=== PATIENT | female | born 1940 | race Caucasian/White ===

== ENCOUNTER 2020-02-12 16:27 | Inpatient (IN) | payer MEDICARE, OTHER ==
[2020-02-12 17:09] LABS: HEMATOCRIT 29.1 % (36.0-47.0); HEMOGLOBIN 9.1 g/dL (12.0-15.5); MEAN CORPUSCULAR HEMOGLOBIN 22.8 pg (27.0-33.4); MEAN CORPUSCULAR HGB CONC 31.2 g/dL (32.0-36.0); MEAN CORPUSCULAR VOLUME 73 fl (80-97); PLATELET COUNT 555 10^3/uL (150-450); RED BLOOD COUNT 3.98 10^6/uL (3.72-5.28); RED CELL DISTRIBUTION WIDTH 15.9 % (11.5-14.0); WHITE BLOOD COUNT 20.1 10^3/uL (4.0-10.5)
[2020-02-12 17:13] LABS: INTERNATIONAL RATION (INR) 2.41; PROTHROMBIN TIME 26.7 SEC (11.4-15.4)
[2020-02-12 17:24] LABS: A TYPE INFLUENZA AG NEGATIVE (NEGATIVE); B INFLUENZA AG NEGATIVE (NEGATIVE)
[2020-02-12 17:26] LABS: ALBUMIN 3.4 g/dL (3.5-5.0); ALKALINE PHOSPHATASE 117 U/L (38-126); ANION GAP 11 (5-19); ASPARTATE AMINO TRANSFERASE 304 U/L (14-36); BILIRUBIN,DIRECT 0.6 mg/dL (0.0-0.4); BILIRUBIN,TOTAL 0.8 mg/dL (0.2-1.3); BLOOD UREA NITROGEN 36 mg/dL (7-20); CALCIUM 9.7 mg/dL (8.4-10.2); CARBON DIOXIDE 25 mmol/L (22-30); CHLORIDE 100 mmol/L (98-107); GLUCOSE 120 mg/dL (75-110); POTASSIUM 4.7 mmol/L (3.6-5.0)
--- NOTE | 2020-02-12 17:36 | ER Document Report ---
ED General - General Chief Complaint: Shortness Of Breath Stated Complaint: WEAKNESS/SHORTNESS OF BREATH Time Seen by Provider: 02/12/20 17:32 Primary Care Provider: DEACON HARLEY PA [Primary Care Provider] - Follow up as needed Mode of Arrival: Medic Information source: Patient TRAVEL OUTSIDE OF THE [place] IN LAST 30 DAYS: No - HPI Onset: Other - over the last 3 weeks Onset/Duration: Gradual Quality of pain: Achy Severity: Severe Pain Level: 2 Associated symptoms: Nonproductive cough, Shortness of breath Exacerbated by: Other - exertion Relieved by: Denies Similar symptoms previously: No Recently seen / treated by doctor: Yes - patient has been seen as an outpatient and treated with 2 antibiotics Notes: 80 year old female with a history of AFib on Eliquis and s/p pacemaker, HTN and COPD here in the ER for 3 weeks of cough, congestion, weakness. The patient says the cough she had been having has improved but she still feels very short of breath. The patient says she feels very weak and run down. The patient has been seen at [facility] and has been told she has pneumonia. The patient is finishing a course of Doxycycline and she apparently has finished a course of C efuroxime. The patient denies known sick contacts or recent travel. - Related Data Allergies/Adverse Reactions: No Known Allergies Allergy (Unverified 02/12/20 16:54) Home Medications: dioxycycline Past Medical History - General Information source: Patient - Social History Smoking Status: Former Smoker Frequency of alcohol use: Rare Drug Abuse: None Family History: Hypertension Patient has suicidal ideation: No Patient has homicidal ideation: No Pulmonary Medical History: Reports: Hx COPD - not on home O2 or Medications Review of Systems - Review of Systems Constitutional: Weakness EENT: No symptoms reported Cardiovascular: No symptoms reported Respiratory: Cough, Short of breath Gastrointestinal: No symptoms reported Genitourinary: No symptoms reported Female Genitourinary: No symptoms reported Musculoskeletal: No symptoms reported Skin: No symptoms reported Hematologic/Lymphatic: No symptoms reported Neurological/Psychological: No symptoms reported -: Yes All other systems reviewed and negative Physical Exam - Vital signs Vitals: Resp Pulse Ox 30 H 92 02/12/20 16:27 02/12/20 16:27 - Notes Notes: GENERAL: Somewhat ill appearing, mild distress HEAD: Atraumatic, normocephalic. EYES: Pupils equal round and reactive to light, extraocular movements intact, sclera anicteric, conjunctiva are normal. ENT: Nares patent, oropharynx clear without exudates. Moist mucous membranes. NECK: Normal range of motion, supple without lymphadenopathy. LUNGS: Breath equal with mild wheezing and rhales but no ronchi. HEART: Regular rate, irregularly irregular rhythm without murmurs, rubs or gallops. ABDOMEN: Soft, nontender, normoactive bowel sounds. No guarding, no rebound. No masses appreciated. EXTREMITIES: Normal range of motion, no pitting or edema. No clubbing or cyanosis. NEUROLOGICAL: Cranial nerves II through XII grossly intact. Normal speech, normal gait. PSYCH: Normal mood, normal affect. SKIN: Warm, Dry, normal turgor, no rashes or lesions noted. Course - Re-evaluation Re-evalutation: 02/12/20 19:12 The patient is here in the ER because she has felt short of breath for about 3 weeks now. She initially had a bad cough and she has been treated with antibiotics without improvement. The patient has an elevated BNP here in the ER and she has diffuse lung opacities which could be consistent with CHF. That said , COVID is also possible and the patient will need to be ruled out. Patient has a high WBC count but is AFebrile here in the ER. Patient found to have a low Mg which was supped. Patient given Lasix for her likely new onset CHF. 02/12/20 20:17 Patient admitted to Tele Floor with COVID rule out precautions. Dr. Humphries requested a repeat Troponin prior to admission to the floor. - Vital Signs Vital signs: Temp Pulse Resp BP Pulse Ox 97.9 F 101 H 31 H 151/98 H 94 02/12/20 16:49 02/12/20 16:49 02/12/20 19:30 02/12/20 19:30 02/12/20 19:30 - Laboratory Result Diagrams: 02/12/20 16:38 02/12/20 16:38 Laboratory results interpreted by me: 02/12/20 02/12/20 02/12/20 16:38 16:38 16:38 WBC 20.1 H Hgb 9.1 L Hct 29.1 L MCV 73 L MCH 22.8 L MCHC 31.2 L RDW 15.9 H Plt Count 555 H Seg Neuts % (Manual) 86 H Lymphocytes % (Manual) 9 L Abs Neuts (Manual) 17.3 H PT 26.7 H Sodium 136.1 L BUN 36 H Est GFR ( Amer) 53 L Est GFR (MDRD) Non-Af 43 L Glucose 120 H Lactic Acid Magnesium Direct Bilirubin 0.6 H AST 304 H ALT 50 H NT-Pro-B Natriuret Pep Albumin 3.4 L 02/12/20 02/12/20 02/12/20 16:38 16:38 16:38 WBC Hgb Hct MCV MCH MCHC RDW Plt Count Seg Neuts % (Manual) Lymphocytes % (Manual) Abs Neuts (Manual) PT Sodium BUN Est GFR ( Amer) Est GFR (MDRD) Non-Af Glucose Lactic Acid 3.3 H Magnesium 1.3 L Direct Bilirubin AST ALT NT-Pro-B Natriuret Pep 67501 H Albumin - Diagnostic Test Radiology reviewed: Image reviewed, Reports reviewed - EKG Interpretation by Me Rate: Normal [place]/QRS: Left axis deviation Additional EKG results interpreted by me: 02/12/20 19:05 AV Dual Paced Discharge - Discharge Clinical Impression: Hypomagnesemia, Shortness of breath Heart failure Qualifiers: Heart failure type: unspecified Heart failure chronicity: unspecified Qualified Code(s): I50.9 - Heart failure, unspecified Condition: Fair Disposition: ADMITTED INPATIENT Admitting Provider: Yandel (Hospitalist) Unit Admitted: Telemetry Referrals: DEACON HARLEY PA [Primary Care Provider] - Follow up as needed
[2020-02-12 17:52] LABS: ABSOLUTE LYMPHOCYTES# (MANUAL) 1.8 10^3/uL (0.5-4.7); BASOPHILS % (MANUAL) 0 % (0-2); EOSINOPHILS % (MANUAL) 0 % (0-6); LYMPHOCYTES % (MANUAL) 9 % (13-45); MONOCYTES % (MANUAL) 5 % (3-13); PLATELET COMMENT INCREASED; SEGMENTED NEUTROPHILS % (MAN) 86 % (42-78); TOTAL CELLS COUNTED 100
[2020-02-12 17:53] LABS: ANISOCYTOSIS 1+
[2020-02-12 17:54] LABS: HYPOCHROMASIA 1+
[2020-02-12 17:55] LABS: BURR CELLS SLIGHT; OVALOCYTES SLIGHT; POLYCHROMASIA 1+; SCHISTOCYTES SLIGHT
--- NOTE | 2020-02-12 18:25 | RADIOLOGY REPORT (SQ) ---
EXAM DESCRIPTION: CHEST SINGLE VIEW IMAGES COMPLETED DATE/TIME: 02/12/2020 4:57 pm REASON FOR STUDY: SOB COMPARISON: None. EXAM PARAMETERS: NUMBER OF VIEWS: One view. TECHNIQUE: Single frontal radiographic view of the chest acquired. RADIATION DOSE: NA LIMITATIONS: None. FINDINGS: LUNGS AND PLEURA: There are patchy peripheral and basilar opacities in both lungs. Probab le small right pleural effusion. No pneumothorax. Lungs are hyperinflated. MEDIASTINUM AND HILAR STRUCTURES: No masses. Contour normal. HEART AND VASCULAR STRUCTURES: Heart normal in size. Normal vasculature. BONES: No acute findings. HARDWARE: Left infraclavicular pacemaker with intact lead wires. OTHER: No other significant finding. IMPRESSION: Patchy peripheral and basilar predominant opacities in both lungs may represent infectio us/inflammatory process. Superimposed pulmonary edema not excluded. TECHNICAL DOCUMENTATION: JOB ID: [id number] 2010 [employer]- All Rights Reserved Reading location - IP/workstation name: [email or web address]
--- NOTE | 2020-02-12 18:35 | EKG REPORT ---
SEVERITY:- ABNORMAL ECG - A-V DUAL-PACED COMPLEXES W/ SOME INHIBITION CONSIDER OLD ANTERIOR [place] : Confirmed by: Blade Mendez MD 12-Feb-2020 18:34:43
[2020-02-12] MEDS ORDERED: FUROSEMIDE INJ/PF 20 MG/2 ML SDV IV ONE (18:47)
[2020-02-12] MEDS ORDERED: ALBUTEROL SULFATE HFA (90 MCG/PUFF) 8 GM MDI (1 MDI/ER DISP) IH SCH (20:30)
[2020-02-12] MEDS ORDERED: MAG HYDROX/AL HYDROX/SIMETH SUSP 30 ML UDCUP PO PRN (20:49)
[2020-02-12] MEDS ORDERED: ONDANSETRON HCL INJ/PF 4 MG/2 ML SDV IV PRN (20:49)
[2020-02-12] MEDS ORDERED: MAGNESIUM HYDROXIDE SUSP 30 ML UDCUP PO PRN (20:49)
[2020-02-12] MEDS ORDERED: ACETAMINOPHEN 325 MG TABLET PO PRN (20:49)
[2020-02-12] MEDS ORDERED: LEVALBUTEROL HCL NEB 0.63 MG/3 ML AMPUL NEB PRN (20:59)
[2020-02-12] MEDS ORDERED: LORAZEPAM INJ 2 MG/1 ML VIAL IV PRN (20:59)
[2020-02-12] MEDS ORDERED: METOPROLOL TARTRATE PF/INJ 5 MG/5 ML SDV IV PRN (20:59)
[2020-02-12] MEDS ORDERED: HYDRALAZINE HCL INJ/PF 20 MG/1 ML SDV IV PRN (20:59)
[2020-02-12] MEDS ORDERED: GUAIFENESIN SYRP 200 MG/10 ML UDC PO PRN (20:59)
[2020-02-12] MEDS ORDERED: MELATONIN 5 MG TABLET PO PRN (20:59)
[2020-02-12] MEDS ORDERED: PROMETHAZINE HCL INJ 25 MG/1 ML VIAL IV PRN (21:05)
[2020-02-12] MEDS ORDERED: MEROPENEM 1 GM VIAL ONE (21:46)
[2020-02-12] MEDS ORDERED: AZITHROMYCIN INJ 500 MG VIAL IV ONE (21:46)
[2020-02-12] MEDS ORDERED: FUROSEMIDE INJ/PF 40 MG/4 ML SDV ONE (21:47)
[2020-02-12] MEDS ORDERED: AZITHROMYCIN INJ 500 MG VIAL IV SCH (22:00)
[2020-02-12] MEDS ORDERED: MEROPENEM 1 GM VIAL IV SCH (22:00)
[2020-02-12] MEDS: MAGNESIUM SULFATE/D5W 1 GM/100 ML RTUPB IV SCH (22:04)
[2020-02-12] MEDS: MEROPENEM 1 GM in NORMAL SALINE 50 ML IV SCH (22:07)
[2020-02-12] MEDS: AZITHROMYCIN 500 MG in DEXTROSE 5%-WATER 250 ML IV SCH (22:08)
[2020-02-12] MEDS: NITROGLYCERIN 2% OINTMENT 1 GM PACKET TP SCH (22:19)
[2020-02-12] MEDS ORDERED: APIXABAN 2.5 MG TABLET PO ONE (22:30)
[2020-02-12 22:35] LABS: CREATINE KINASE MB 3.03 ng/mL (<4.55)
[2020-02-12 22:48] LABS: TROPONIN I 0.088 ng/mL
--- NOTE | 2020-02-13 03:11 | PDOC H&P ---
History of Present Illness Admission Date/PCP: 02/12/2020 20:19 TREVA BLANCO Patient complains of: Dyspnea History of Present Illness: BEATRICE BALL is a 80 year old female who presents the emergency room with a 3-week history of dyspnea. She admits gradual onset and worsening of dyspnea over the last 3 weeks. Her dyspnea has become severe today and has been accompanied by generalized weakness, fatigue and malaise and associated with a nonproductive cough. Her dyspnea is worsened by any exertion. She denies other associated or accompanying signs and symptoms. She denies prior similar episodes. She was seen in by urgent care providers on 2 occasions over the last 3 weeks with similar complaints and was treated with cefuroxime for 10 days and then with doxycycline for 10 days which she has nearly completed without noticeable improvement. She denies identification of any additional aggravating or ameliorating factors for her dyspnea. In the emergency room she was found to be hypoxic requiring supplemental oxygen and hypertensive. She was noted to have an elevated lactic acid at 3.3, a BNP greater than 10,000, a white blood count of 20,000, a magnesium level of 1.3 and a serum troponin of 0.087. She was subsequently admitted to the hospital for further evaluation and treatment. Coronavirus testing was performed in the ER. Past Medical History Cardiac Medical History: Reports: Atrial Fibrillation - On chronic anticoagula tion with Eliquis, Hypertension, Other - Dual-chamber pacemaker Denies: Congestive Heart Failure, Coronary Artery Disease, DVT, Myocardial Infarction, Hyperlipidema, Pulmonary Embolism Pulmonary Medical History: Reports: Chronic Obstructive Pulmonary Disease (COPD) - not on home O2 or medical therapy Denies: Asthma EENT Medical History: Denies: Cataracts, Ears - Hearing aids Neurological Medical History: Denies: Hemorrhagic CVA, Ischemic CVA, Seizures Endocrine Medical History: Denies: Diabetes Mellitus Type 1, Diabetes Mellitus Type 2, Hyperthyroidism, Hypothyroidism Renal/ Medical History: Denies: Chronic Kidney Disease, Nephrolithiasis Malignancy Medical History: Reports: None GI Medical History: Denies: Cirrhosis, Crohn's Disease, Hepatitis, Ulcerative Colitis Musculoskeltal Medical History: Denies: Arthritis, Gout Skin Medical History: Denies: Eczema, Psoriasis Psychiatric Medical History: Denies: Alcohol Dependency, Substance Abuse, Tobacco Dependency Traumatic Medical History: Reports: None Hematology: Denies: Anemia, Bleeding Tendencies Infectious Medical History: Reports: None Past Surgical History Past Surgical History: Reports: Cholecystectomy, Hysterectomy, Knee Replacement, Pacemaker, Tonsillectomy Social History Information Source: Patient Lives with: Spouse/Significant other Smoking Status: Former Smoker - Remote past Electronic Cigarette use?: No Frequency of Alcohol Use: None Hx Recreational Drug Use: No Drugs: None Hx Prescription Drug Abuse: No - Advance Directive Resuscitation Status: Full Code Surrogate healthcare decision maker:: Eliz Gayle Family History Family History: Hypertension. denies: CAD, DM, Malignancy Parental Family History Reviewed: Yes Children Family History Reviewed: No Sibling(s) Family History Reviewed.: Yes Medication/Allergy Allergies/Adverse Reactions: No Known Allergies Allergy (Unverified 02/12/20 16:54) Review of Systems Constitutional: PRESENT: as per HPI, fatigue, weakness. ABSENT: chills, fever(s) Eyes: ABSENT: visual disturbances, other - Eye pain Ears: ABSENT: hearing changes, other - Ear pain Nose, Mouth, and Throat: ABSENT: headache(s), sore throat Cardiovascular: PRESENT: dyspnea on exertion. ABSENT: chest pain, edema, palpitations Respiratory: PRESENT: as per HPI, cough, dyspnea. ABSENT: hemoptysis, sputum Gastrointestinal: ABSENT: abdominal pain, constipation, diarrhea, nausea, vomiting Genitourinary: ABSENT: dysuria, hematuria Musculoskeletal: ABSENT: back pain, joint swelling Integumentary: ABSENT: pruritus, rash Neurological: ABSENT: confusion, convulsions, focal weakness, memory loss, syncope Psychiatric: ABSENT: anxiety, depression Endocrine: ABSENT: cold intolerance, heat intolerance Hematologic/Lymphatic: ABSENT: easy bleeding, easy bruising Allergic/Immunologic: ABSENT: seasonal rhinorrhea Physical Exam Vital Signs: Temp Pulse Resp BP Pulse Ox 97.9 F 101 H 31 H 151/98 H 94 02/12/20 16:49 02/12/20 16:49 02/12/20 19:30 02/12/20 19:30 02/12/20 19:30 General appearance: PRESENT: cooperative, mild distress - Secondary to dyspnea Head exam: PRESENT: atraumatic, normocephalic Eye exam: ABSENT: conjunctival injection, scleral icterus Ear exam: PRESENT: normal external ear exam. ABSENT: bleeding, drainage Mouth exam: PRESENT: dry mucosa, neck supple Neck exam: ABSENT: thyromegaly, tracheal deviation Respiratory exam: PRESENT: decreased breath sounds - Breath sounds decreased at the bilateral bases, rales - Fine bibasilar rales in the lower one fourth of both lung rutherford, symmetrical, tachypnea Cardiovascular exam: PRESENT: RRR. ABSENT: clicks, gallop, rubs Pulses: PRESENT: normal radial pulses, normal dorsalis pedis pul Vascular exam: PRESENT: normal capillary refill. ABSENT: pallor GI/Abdominal exam: PRESENT: normal bowel sounds, soft Rectal exam: PRESENT: deferred Extremities exam: ABSENT: pedal edema, tenderness Musculoskeletal exam: ABSENT: deformity, dislocation Neurological exam: PRESENT: alert, oriented to person, oriented to place, oriented to time, oriented to situation, CN II-XII grossly intact Psychiatric exam: PRESENT: appropriate affect, normal mood Skin exam: PRESENT: dry, intact, warm. ABSENT: jaundice, rash, urticaria Results Laboratory Results: 02/12/20 16:38 02/12/20 16:38 02/12/20 02/12/20 02/12/20 16:38 16:38 16:38 WBC 20.1 H RBC 3.98 Hgb 9.1 L Hct 29.1 L MCV 73 L MCH 22.8 L MCHC 31.2 L RDW 15.9 H Plt Count 555 H Seg Neutrophils % Not Reportable Sodium 136.1 L Potassium 4.7 Chloride 100 Carbon Dioxide 25 Anion Gap 11 BUN 36 H Creatinine 1.19 Est GFR ( Amer) 53 L Glucose 120 H Lactic Acid 3.3 H Calcium 9.7 Magnesium Total Bilirubin 0.8 AST 304 H Alkaline Phosphatase 117 Total Protein 7.0 Albumin 3.4 L 02/12/20 16:38 WBC RBC Hgb Hct MCV MCH MCHC RDW Plt Count Seg Neutrophils % Sodium Potassium Chloride Carbon Dioxide Anion Gap BUN Creatinine Est GFR ( Amer) Glucose Lactic Acid Calcium Magnesium 1.3 L Total Bilirubin AST Alkaline Phosphatase Total Protein Albumin 02/12/20 02/12/20 16:38 16:38 Troponin I 0.087 NT-Pro-B Natriuret Pep 99064 H Impressions: Chest X-Ray 02/12/20 16:55 IMPRESSION: Patchy peripheral and basilar predominant opacities in both lungs may represent infectious/inflammatory process. Superimposed pulmonary edema not excluded. Assessment and Plan - Diagnosis (1) Acute pulmonary edema with congestive heart failure Is this a current diagnosis for this admission?: Yes (2) Acute respiratory failure with hypoxia Is this a current diagnosis for this admission?: Yes (3) Acute congestive heart failure Qualifiers: Heart failure type: unspecified Qualified Code(s): I50.9 - Heart failure, unspecified Is this a current diagnosis for this admission?: Yes (4) Elevated troponin I level Is this a current diagnosis for this admission?: Yes (5) Leukocytosis Qualifiers: Leukocytosis type: unspecified Qualified Code(s): D72.829 - Elevated white blood cell count, unspecified Is this a current diagnosis for this admission?: Yes (6) Elevated lactic acid level Is this a current diagnosis for this admission?: Yes (7) Thrombocytosis Is this a current diagnosis for this admission?: Yes (8) Hypomagnesemia Is this a current diagnosis for this admission?: Yes (9) Hypertension Qualifiers: Hypertension type: essential hypertension Qualified Code(s): I10 - Essential (primary) hypertension Is this a current diagnosis for this admission?: Yes - Plan Summary Summary: Patient is admitted to telemetry on the medical floor where she will receive routine supportive and symptomatic cares. She will receive IV meropenem initially until blood and urine culture results are known. She will receive supportive supplemental oxygen and additional airway support utilizing noninvasive airway pressure devices such as BiPAP or CPAP, in order to maintain an adequate oxygen saturation level. She will receive morphine sulfate 2 mg IV every hour as needed for severe dyspnea due to pulmonary edema. An echocardiogram will be performed and a cardiology consultation with Dr. Gallegos will be obtained. Intravenous magnesium replacement was initiated in the ER. Patient's fluid electrolyte balance will be monitored closely with metabolic profiles as required. CBCs and magnesium levels will also be obtained as need ed. Arterial and/or venous blood gases will be obtained as required. Patient will receive additional doses of IV Lasix after her initial dose administered in the ER. Patient's INR will be followed closely. She will be treated with a heart healthy diet. - Time Time Spent with patient: 15-24 minutes Medications reviewed and adjusted accordingly: Yes Anticipated discharge: Home with Homehealth - Inpatient Certification Based on my medical assessment, after consideration of the patient's comorbidities, presenting symptoms, or acuity I expect that the services needed warrant INPATIENT care.: Yes I certify that my determination is in accordance with my understanding of Medicare's requirements for reasonable and necessary INPATIENT services [42 CFR 412.3e].: Yes Medical Necessity: Failure to Improve With Outpatient Therapy, Need Close Monitoring Due to Risk of Patient Decompensation, Need For IV Fluids, Need For Continuous Telemetry Monitoring, Need for IV Antibiotics, Risk of Complication if Not Cared For in Hospital
[2020-02-13] MEDS: MORPHINE SULFATE 10 MG/ML INJ IV PRN ×2 (03:13→05:55)
[2020-02-13] MEDS: NITROGLYCERIN 2% OINTMENT 1 GM PACKET TP SCH ×4 (03:20→21:06)
[2020-02-13 04:25] LABS: HEMATOCRIT 27.6 % (36.0-47.0); HEMOGLOBIN 8.9 g/dL (12.0-15.5); MEAN CORPUSCULAR HEMOGLOBIN 23.2 pg (27.0-33.4); MEAN CORPUSCULAR HGB CONC 32.2 g/dL (32.0-36.0); MEAN CORPUSCULAR VOLUME 72 fl (80-97); PLATELET COUNT 495 10^3/uL (150-450); RED BLOOD COUNT 3.84 10^6/uL (3.72-5.28); RED CELL DISTRIBUTION WIDTH 15.8 % (11.5-14.0); WHITE BLOOD COUNT 20.8 10^3/uL (4.0-10.5)
[2020-02-13 04:44] LABS: ANION GAP 13 (5-19); BLOOD UREA NITROGEN 33 mg/dL (7-20); CALCIUM 8.9 mg/dL (8.4-10.2); CARBON DIOXIDE 25 mmol/L (22-30); CHLORIDE 99 mmol/L (98-107); GLUCOSE 128 mg/dL (75-110); POTASSIUM 4.6 mmol/L (3.6-5.0)
[2020-02-13 04:54] LABS: CREATINE KINASE MB 3.59 ng/mL (<4.55); TROPONIN I 0.083 ng/mL
[2020-02-13 04:59] LABS: ABSOLUTE LYMPHOCYTES# (MANUAL) 1.2 10^3/uL (0.5-4.7); ABSOLUTE MONOCYTES # (MANUAL) 0.6 10^3/uL (0.1-1.4); BASOPHILS % (MANUAL) 0 % (0-2); EOSINOPHILS % (MANUAL) 1 % (0-6); LYMPHOCYTES % (MANUAL) 6 % (13-45); MONOCYTES % (MANUAL) 3 % (3-13); SEGMENTED NEUTROPHILS % (MAN) 90 % (42-78); TOTAL CELLS COUNTED 100; TOXIC GRANULATION SLIGHT; TOXIC VACUOLATION PRESENT
[2020-02-13 05:00] LABS: ANISOCYTOSIS SLIGHT; HYPOCHROMASIA 1+; OVALOCYTES SLIGHT; PLATELET COMMENT ADEQUATE; POIKILOCYTOSIS SLIGHT; SCHISTOCYTES SLIGHT
[2020-02-13 05:01] LABS: POLYCHROMASIA SLIGHT
[2020-02-13 05:26] LABS: THYROID STIMULATING HORMONE 0.5 uIU/mL (0.47-4.68)
[2020-02-13] MEDS: PANTOPRAZOLE SODIUM 20 MG TABLET.DR PO SCH (05:55)
[2020-02-13] MEDS: MEROPENEM 1 GM in NORMAL SALINE 50 ML IV SCH ×3 (05:55→23:01)
[2020-02-13] MEDS ORDERED: PANTOPRAZOLE SODIUM 40 MG VIAL IV SCH (06:00)
[2020-02-13] MEDS: FUROSEMIDE INJ/PF 20 MG/2 ML SDV IV SCH ×2 (09:34→23:01)
[2020-02-13] MEDS: APIXABAN 2.5 MG TABLET PO SCH ×2 (09:34→17:14)
[2020-02-13] MEDS: DOCUSATE SODIUM 100 MG CAPSULE PO SCH (09:36)
--- NOTE | 2020-02-13 10:19 | PDOC CONSULTATION ---
Consultation Consult Date: 02/13/20 Attending physician:: RUBEN HERNANDEZ Provider Consulted: [place] MAGANA Consult reason:: Congestive heart failure History of Present Illness Admission Date/PCP: 02/12/20 20:22 TREVA BLANCO Patient complains of: Dyspnea History of Present Illness: BEATRICE BALL is a 80 year old female With the following problems 1. Fibrillation 2. Left-sided permanent pacemaker 3. Systemic anticoagulation-apixaban Patient presents with worsening dyspnea. Recent onset of symptoms which have gotten worse. Recent antibiotic usage with doxycycline being reported. Since admission she has become more short of breath. No prior history of congestive heart failure is reported no prior surgeries other than permanent pacemaker implantation Patient is unable to relate a detailed history on account of dyspnea and increased work of breathing. No family is present. Surgical history none is noted for permanent pacemaker implantation left upper chest infraclavicular area. Past Medical History Cardiac Medical History: Reports: Atrial Fibrillation - On chronic anticoagulation with Eliquis, Hypertension, Other - Dual-chamber pacemaker Denies: Congestive Heart Failure, Coronary Artery Disease, DVT, Myocardial Infarction, Hyperlipidema, Pulmonary Embolism Pulmonary Medical History: Reports: Chronic Obstructive Pulmonary Disease (COPD) - not on home O2 or medical therapy Denies: Asthma EENT Medical History: Denies: Cataracts, Ears - Hearing aids Neurological Medical History: Denies: Hemorrhagic CVA, Ischemic CVA, Seizures Endocrine Medical History: Denies: Diabetes Mellitus Type 1, Diabetes Mellitus Type 2, Hyperthyroidism, Hypothyroidism Renal/ Medical History: Denies: Chronic Kidney Disease, Nephrolithiasis Malignancy Medical History: Reports: None GI Medical History: Denies: Cirrhosis, Crohn's Disease, Hepatitis, Ulcerative Colitis Musculoskeltal Medical History: Denies: Arthritis, Gout Skin Medical History: Denies: Eczema, Psoriasis Psychiatric Medical History: Denies: Alcohol Dependency, Substance Abuse, Tobacco Dependency Traumatic Medical History: Reports: None Hematology: Denies: Anemia, Bleeding Tendencies Infectious Medical History: Reports: None Past Surgical History Past Surgical History: Reports: Cholecystectomy, Hysterectomy, Knee Replacement, Pacemaker, Tonsillectomy Social History Lives with: Spouse/Significant other Smoking Status: Former Smoker - Remote past Electronic Cigarette use?: No Frequency of Alcohol Use: None Hx Recreational Drug Use: No Drugs: None Hx Prescription Drug Abuse: No - Advance Directive Resuscitation Status: Full Code Family History Family History: Hypertension. denies: CAD, DM, Malignancy Parental Family History Reviewed: No - Unable to relate family history on account of dyspnea. Children Family History Reviewed: NA Sibling(s) Family History Reviewed.: NA Medication/Allergy Allergies/Adverse Reactions: No Known Allergies Allergy (Unverified 02/12/20 16:54) Review of Systems ROS unobtainable: Other - Increased work of breathing and dyspnea. Limited review of systems. Respiratory: PRESENT: cough, dyspnea Physical Exam Vital Signs: Temp Pulse Resp BP Pulse Ox 97.6 F 102 H 24 H 142/63 H 93 02/13/20 09:26 02/13/20 09:26 02/13/20 09:26 02/13/20 09:26 02/13/20 09:26 Intake & Output 02/12/20 02/13/20 02/14/20 06:59 06:59 06:59 Intake Total 343 107 Balance 343 107 Weight 62.5 kg General appearance: PRESENT: cooperative, mild distress, well-developed, well- nourished Head exam: PRESENT: atraumatic, normocephalic Eye exam: PRESENT: EOMI Mouth exam: PRESENT: moist Respiratory exam: PRESENT: accessory muscle use, decreased breath sounds, rales, symmetrical, tachypnea Cardiovascular exam: PRESENT: irregular rhythm, +S1, +S2 Pulses: PRESENT: normal radial pulses GI/Abdominal exam: PRESENT: soft Rectal exam: PRESENT: deferred Neurological exam: PRESENT: alert, awake, oriented to person, oriented to place, oriented to time Psychiatric exam: PRESENT: appropriate affect Skin exam: PRESENT: dry, intact Results Laboratory Results: 02/13/20 04:06 02/13/20 04:06 02/12/20 02/12/20 02/12/20 16:38 16:38 16:38 WBC 20.1 H RBC 3.98 Hgb 9.1 L Hct 29.1 L MCV 73 L MCH 22.8 L MCHC 31.2 L RDW 15.9 H Plt Count 555 H Seg Neutrophils % Not Reportable Sodium 136.1 L Potassium 4.7 Chloride 100 Carbon Dioxide 25 Anion Gap 11 BUN 36 H Creatinine 1.19 Est GFR ( Amer) 53 L Glucose 120 H Lactic Acid 3.3 H Calcium 9.7 Magnesium Total Bilirubin 0.8 AST 304 H Alkaline Phosphatase 117 Total Protein 7.0 Albumin 3.4 L TSH Free T3 pg/mL 02/12/20 02/12/20 02/13/20 16:38 21:28 00:48 WBC RBC Hgb Hct MCV MCH MCHC RDW Plt Count Seg Neutrophils % Sodium Potassium Chloride Carbon Dioxide Anion Gap BUN Creatinine Est GFR ( Amer) Glucose Lactic Acid 2.1 2.3 H Calcium Magnesium 1.3 L Total Bilirubin AST Alkaline Phosphatase Total Protein Albumin TSH Free T3 pg/mL 02/13/20 02/13/20 02/13/20 04:06 04:06 04:06 WBC 20.8 H RBC 3.84 Hgb 8.9 L Hct 27.6 L MCV 72 L MCH 23.2 L MCHC 32.2 RDW 15.8 H Plt Count 495 H Seg Neutrophils % Not Reportable Sodium 136.5 L Potassium 4.6 Chloride 99 Carbon Dioxide 25 Anion Gap 13 BUN 33 H Creatinine 0.85 Est GFR ( Amer) > 60 Glucose 128 H Lactic Acid Calcium 8.9 Magnesium 1.9 Total Bilirubin AST Alkaline Phosphatase Total Protein Albumin TSH 0.50 Free T3 pg/mL 2.00 L 02/13/20 02/13/20 04:06 08:35 WBC RBC Hgb Hct MCV MCH MCHC RDW Plt Count Seg Neutrophils % Sodium Potassium Chloride Carbon Dioxide Anion Gap BUN Creatinine Est GFR ( Amer) Glucose Lactic Acid 1.5 1.3 Calcium Magnesium Total Bilirubin AST Alkaline Phosphatase Total Protein Albumin TSH Free T3 pg/mL 02/12/20 02/12/20 02/12/20 16:38 16:38 21:28 Creatine Kinase CK-MB (CK-2) 3.03 Troponin I 0.087 0.088 NT-Pro-B Natriuret Pep 25421 H 02/12/20 02/13/20 02/13/20 21:44 04:06 04:06 Creatine Kinase 36 40 CK-MB (CK-2) 3.59 Troponin I 0.083 NT-Pro-B Natriuret Pep EKG Comments: Twelve-lead EKG 02/12/2020. Independently reviewed by me. Demand AV paced Chest x-ray 02/12/2020 Bilateral patchy airspace disease. Possible pulmonary edema although more likely to be infectious Impressions: Chest X-Ray 02/12/20 16:55 IMPRESSION: Patchy peripheral and basilar predominant opacities in both lungs may represent infectious/inflammatory process. Superimposed pulmonary edema not excluded. Assessment & Plan - Diagnosis (1) Shortness of breath Is this a current diagnosis for this admission?: Yes Plan: Dyspnea which seems to be getting worse. Bilateral coarse lung rutherford with rails and abnormal chest x-ray suggestive of infectious process given its patchy nature Do not have supportive findings of congestive heart failure such as elevated JVD or profound edema. Appropriately consultation with ICU has been arranged. We will watch fluid status. Will check echocardiogram There could be a component of congestive heart failure but given leukocytosis and overall respiratory findings concerned that this could be an infectious process. (2) Atrial fibrillation Is this a current diagnosis for this admission?: Yes Plan: Rate controlled. Demand pacing on EKG. Increased risk of stroke and has been on systemic anticoagulation likely. Would recommend continuing this if there is no contraindication. (3) Pacemaker Is this a current diagnosis for this admission?: Yes Plan: Left upper chest wall pacemaker implant site is well-healed. Patient is not sure about make an brand of pacemaker.
[2020-02-13 10:31] LABS: APPEARANCE,URINE CLEAR; BILIRUBIN,URINE NEGATIVE (NEGATIVE); COLOR,URINE YELLOW; GLUCOSE, URINE NEGATIVE (NEGATIVE); KETONES,URINE NEGATIVE (NEGATIVE); PROTEIN,URINE NEGATIVE (NEGATIVE); URINE SPECIFIC GRAVITY 1.017; UROBILINOGEN,URINE NEGATIVE mg/dL (<2.0)
[2020-02-13 12:23] LABS: CREATINE KINASE MB 3.3 ng/mL (<4.55); TROPONIN I 0.073 ng/mL
[2020-02-13] MEDS ORDERED: FLUTICASONE NASAL SPRAY 50 MCG/SPRY 120 SPRAY/16 GM NASL PRN (12:51)
--- NOTE | 2020-02-13 12:55 | PDOC PROGRESS REPORT ---
Subjective Progress Note for:: 02/13/20 Subjective:: Patient still very short of breath. She is on nonrebreather mask. Her appetite is poor but she is trying to take little bits of food at a time. She does state that she uses protein drinks at home and I will order some of these for her. She is tachypneic and tachycardic this morning but she is afebrile. Reason For Visit: ACUTE CONGESTIVE HEART FAILURE,ACUTE PULMONARY Physical Exam Vital Signs: Temp Pulse Resp BP Pulse Ox 97.6 F 102 H 24 H 142/63 H 93 02/13/20 09:26 02/13/20 09:26 02/13/20 09:26 02/13/20 09:26 02/13/20 09:26 Intake & Output 02/12/20 02/13/20 02/14/20 06:59 06:59 06:59 Intake Total 343 107 Balance 343 107 Weight 62.5 kg General appearance: PRESENT: cooperative, well-developed, other - Pleasant 80-year-old female in moderate distress with tachypnea. Head exam: PRESENT: atraumatic, normocephalic Eye exam: PRESENT: conjunctiva pink. ABSENT: scleral icterus Ear exam: PRESENT: normal external ear exam. ABSENT: bleeding, drainage Mouth exam: PRESENT: dry mucosa, tongue midline Respiratory exam: PRESENT: rales - Diffuse rales bilaterally, symmetrical, tachypnea. ABSENT: rhonchi, wheezes GI/Abdominal exam: PRESENT: diminished bowel sounds, soft. ABSENT: distended, guarding, tenderness Rectal exam: PRESENT: deferred Gentrourinary exam: PRESENT: indwelling catheter Extremities exam: ABSENT: pedal edema Neurological exam: PRESENT: alert, awake, oriented to person, oriented to place, oriented to situation Psychiatric exam: PRESENT: flat affect. ABSENT: agitated, anxious Focused psych exam: ABSENT: delusional, paranoid, restlessness Results Laboratory Results: 02/13/20 04:06 02/13/20 04:06 02/12/20 02/12/20 02/12/20 16:38 16:38 16:38 WBC 20.1 H RBC 3.98 Hgb 9.1 L Hct 29.1 L MCV 73 L MCH 22.8 L MCHC 31.2 L RDW 15.9 H Plt Count 555 H Seg Neutrophils % Not Reportable Sodium 136.1 L Potassium 4.7 Chloride 100 Carbon Dioxide 25 Anion Gap 11 BUN 36 H Creatinine 1.19 Est GFR ( Amer) 53 L Glucose 120 H Lactic Acid 3.3 H Calcium 9.7 Magnesium Total Bilirubin 0.8 AST 304 H Alkaline Phosphatase 117 Total Protein 7.0 Albumin 3.4 L TSH Free T3 pg/mL Urine Color Urine Appearance Urine pH Ur Specific [place] Urine Protein Urine Glucose (UA) Urine Ketones Urine Blood Urine RBC (Auto) 02/12/20 02/12/20 02/13/20 16:38 21:28 00:48 WBC RBC Hgb Hct MCV MCH MCHC RDW Plt Count Seg Neutrophils % Sodium Potassium Chloride Carbon Dioxide Anion Gap BUN Creatinine Est GFR ( Amer) Glucose Lactic Acid 2.1 2.3 H Calcium Magnesium 1.3 L Total Bilirubin AST Alkaline Phosphatase Total Protein Albumin TSH Free T3 pg/mL Urine Color Urine Appearance Urine pH Ur Specific [place] Urine Protein Urine Glucose (UA) Urine Ketones Urine Blood Urine RBC (Auto) 02/13/20 02/13/20 02/13/20 04:06 04:06 04:06 WBC 20.8 H RBC 3.84 Hgb 8.9 L Hct 27.6 L MCV 72 L MCH 23.2 L MCHC 32.2 RDW 15.8 H Plt Count 495 H Seg Neutrophils % Not Reportable Sodium 136.5 L Potassium 4.6 Chloride 99 Carbon Dioxide 25 Anion Gap 13 BUN 33 H Creatinine 0.85 Est GFR ( Amer) > 60 Glucose 128 H Lactic Acid Calcium 8.9 Magnesium 1.9 Total Bilirubin AST Alkaline Phosphatase Total Protein Albumin TSH 0.50 Free T3 pg/mL 2.00 L Urine Color Urine Appearance Urine pH Ur Specific [place] Urine Protein Urine Glucose (UA) Urine Ketones Urine Blood Urine RBC (Auto) 02/13/20 02/13/20 02/13/20 04:06 08:35 10:05 WBC RBC Hgb Hct MCV MCH MCHC RDW Plt Count Seg Neutrophils % Sodium Potassium Chloride Carbon Dioxide Anion Gap BUN Creatinine Est GFR ( Amer) Glucose Lactic Acid 1.5 1.3 Calcium Magnesium Total Bilirubin AST Alkaline Phosphatase Total Protein Albumin TSH Free T3 pg/mL Urine Color YELLOW Urine Appearance CLEAR Urine pH 5.0 Ur Specific [place] 1.017 Urine Protein NEGATIVE Urine Glucose (UA) NEGATIVE Urine Ketones NEGATIVE Urine Blood NEGATIVE Urine RBC (Auto) 2 02/12/20 02/12/20 02/12/20 16:38 16:38 21:28 Creatine Kinase CK-MB (CK-2) 3.03 Troponin I 0.087 0.088 NT-Pro-B Natriuret Pep 94002 H 02/12/20 02/13/20 02/13/20 21:44 04:06 04:06 Creatine Kinase 36 40 CK-MB (CK-2) 3.59 Troponin I 0.083 NT-Pro-B Natriuret Pep 02/13/20 10:59 Creatine Kinase 46 CK-MB (CK-2) Troponin I NT-Pro-B Natriuret Pep Impressions: Chest X-Ray 02/12/20 16:55 IMPRESSION: Patchy peripheral and basilar predominant opacities in both lungs may represent infectious/inflammatory process. Superimposed pulmonary edema not excluded. Assessment and Plan - Diagnosis (1) Viral pneumonitis Is this a current diagnosis for this admission?: Yes Plan: 02/13/2020 Spoke with cardiology. They do not believe this is primarily a congestive heart failure problem. Highly suspicious for Covid-19. Still with high demand oxygen therapy. (2) Suspected 2019-nCoV infection Is this a current diagnosis for this admission?: Yes Plan: 02/13/2020 Multiple inflammatory markers support a viral pneumonitis. Covid-19 serology pending. The patient is DNR. I reviewed the case with the track inspector to make sure we are treating as aggressively as possible. She is on antibiotics as well as the recommended Covid-19 regimen including Plaquenil. I did speak to the patient's daughter twice today. The second call was to let her know that she was not improving on the nonrebreather mask and so we are removing 2 optimizer at 15 L. (3) Acute respiratory failure with hypoxia Is this a current diagnosis for this admission?: Yes Plan: 02/13/2020 Secondary to the pneumonitis. The patient does have a history of heart failure as well. We will continue to treat for both with focus primarily on viral infection. Unfortunately with tachypnea and her decreased inspiratory phase the disc type inhalers may not be effective as all of the medication will likely end up on her tongue. Xopenex is available as needed. And working closely with the track inspector to maximize treatment where possible. (4) Acute pulmonary edema with congestive heart failure Is this a current diagnosis for this admission?: Yes Plan: 02/13/2020 Less likely but continue furosemide and cardiac medications (5) Longstanding persistent atrial fibrillation Is this a current diagnosis for this admission?: Yes Plan: 02/13/2020 The patient is on amiodarone, sotalol and diltiazem at home. Dr. Gallegos is following the patient from a cardiology standpoint. Will defer her medication management for the fibrillation and failure to cardiology. (6) Elevated lactic acid level Is this a current diagnosis for this admission?: Yes Plan: 02/13/2020 Initially elevated secondary to infection. Resolved. (7) Hypertension Qualifiers: Hypertension type: essential hypertension Qualified Code(s): I10 - Essential (primary) hypertension Is this a current diagnosis for this admission?: Yes (8) Hypomagnesemia Is this a current diagnosis for this admission?: Yes Plan: 02/13/2020 Corrected with supplementation (9) Leukocytosis Qualifiers: Leukocytosis type: unspecified Qualified Code(s): D72.829 - Elevated white blood cell count, unspecified Is this a current diagnosis for this admission?: Yes Plan: 02/13/2020 Secondary to infection. White blood cell count is still 20,000 this morning. She does have a significant lymphopenia. Continue to monitor with serial CBCs. (10) Thrombocytosis Is this a current diagnosis for this admission?: Yes Plan: 02/13/2020 Likely increased as an inflammatory marker due to the underlying infection. Continue to monitor. - Plan Summary Summary: Patient is admitted to telemetry on the medical floor where she will receive routine supportive and symptomatic cares. She will receive IV meropenem initi ally until blood and urine culture results are known. She will receive supportive supplemental oxygen and additional airway support utilizing noninvasive airway pressure devices such as BiPAP or CPAP, in order to maintain an adequate oxygen saturation level. She will receive morphine sulfate 2 mg IV every hour as needed for severe dyspnea due to pulmonary edema. An echocardiogram will be performed and a cardiology consultation with Dr. Gallegos will be obtained. Intravenous magnesium replacement was initiated in the ER. Patient's fluid electrolyte balance will be monitored closely with metabolic profiles as required. CBCs and magnesium levels will also be obtained as needed. Arterial and/or venous blood gases will be obtained as required. Patient will receive additional doses of IV Lasix after her initial dose administered in the ER. Patient's INR will be followed closely. She will be treated with a heart healthy diet. - Time Time Spent with patient: 25-34 minutes Medications reviewed and adjusted accordingly: Yes
[2020-02-13] MEDS ORDERED: HYDROXYCHLOROQUINE SULFATE 200 MG TABLET PO ONE (13:48)
[2020-02-13] MEDS: DONEPEZIL HCL 5 MG TABLET PO SCH (14:16)
[2020-02-13] MEDS: ZINC SULFATE 220 MG CAPSULE PO SCH (14:16)
[2020-02-13] MEDS: ASCORBIC ACID 500 MG TABLET PO SCH ×2 (17:14→23:38)
[2020-02-13] MEDS: SOTALOL HCL 80 MG TABLET PO SCH ×2 (17:14→17:19)
[2020-02-13] MEDS ORDERED: APIXABAN 2.5 MG TABLET PO SCH (18:00)
[2020-02-13] MEDS: TRAMADOL HCL 50 MG TABLET PO PRN (20:29)
[2020-02-13] MEDS: AZITHROMYCIN 500 MG in DEXTROSE 5%-WATER 250 ML IV SCH (21:06)
[2020-02-13] MEDS ORDERED: MELATONIN 5 MG TABLET PO SCH (22:00)
[2020-02-13] MEDS: HYDROXYCHLOROQUINE SULFATE 200 MG TABLET PO SCH (23:03)
[2020-02-14] MEDS: NITROGLYCERIN 2% OINTMENT 1 GM PACKET TP SCH ×3 (04:02→14:08)
[2020-02-14] MEDS: MEROPENEM 1 GM in NORMAL SALINE 50 ML IV SCH ×2 (05:24→14:13)
[2020-02-14] MEDS: ASCORBIC ACID 500 MG TABLET PO SCH ×2 (05:24→14:08)
[2020-02-14] MEDS: PANTOPRAZOLE SODIUM 20 MG TABLET.DR PO SCH (05:24)
[2020-02-14 05:38] LABS: HEMOGLOBIN 9.5 g/dL (12.0-15.5); MEAN CORPUSCULAR HEMOGLOBIN 22.8 pg (27.0-33.4); MEAN CORPUSCULAR HGB CONC 31.6 g/dL (32.0-36.0); MEAN CORPUSCULAR VOLUME 72 fl (80-97); PLATELET COUNT 580 10^3/uL (150-450); RED BLOOD COUNT 4.16 10^6/uL (3.72-5.28); RED CELL DISTRIBUTION WIDTH 16.1 % (11.5-14.0)
[2020-02-14 05:43] LABS: WHITE BLOOD COUNT 32.8 10^3/uL (4.0-10.5)
[2020-02-14 05:53] LABS: ABSOLUTE LYMPHOCYTES# (MANUAL) 2.6 10^3/uL (0.5-4.7); ABSOLUTE MONOCYTES # (MANUAL) 0.7 10^3/uL (0.1-1.4); BAND NEUTROPHILS % (MANUAL) 1 % (3-5); BASOPHILS % (MANUAL) 0 % (0-2); EOSINOPHILS % (MANUAL) 0 % (0-6); LYMPHOCYTES % (MANUAL) 8 % (13-45); MONOCYTES % (MANUAL) 2 % (3-13); NUCLEATED RED BLOOD CELLS 2 /100 WBC (0); SEGMENTED NEUTROPHILS % (MAN) 89 % (42-78); TOTAL CELLS COUNTED 100
[2020-02-14 05:56] LABS: ANISOCYTOSIS 1+; BURR CELLS SLIGHT; HYPOCHROMASIA 2+; OVALOCYTES SLIGHT; PLATELET COMMENT INCREASED; POIKILOCYTOSIS SLIGHT; POLYCHROMASIA SLIGHT; SCHISTOCYTES SLIGHT; TEAR DROP CELLS SLIGHT; TOXIC GRANULATION SLIGHT
[2020-02-14] MEDS: TRAMADOL HCL 50 MG TABLET PO PRN (08:31)
[2020-02-14 09:01] LABS: PATH REVIEW PATHOLOGIST REVIEWED
[2020-02-14 09:42] LABS: INTERNATIONAL RATION (INR) 1.78; PARTIAL THROMBOPLASTIN TIME 33.6 SEC (23.5-35.8); PROTHROMBIN TIME 20.9 SEC (11.4-15.4)
[2020-02-14] MEDS ORDERED: THIAMINE HCL IV SCH (10:00)
[2020-02-14] MEDS ORDERED: THIAMINE HCL INJ 200 MG/2 ML VIAL IV SCH (10:00)
[2020-02-14] MEDS ORDERED: NORMAL SALINE IV SCH (10:00)
[2020-02-14] MEDS ORDERED: LIOTHYRONINE SODIUM 25 MCG TABLET PO SCH (10:00)
[2020-02-14] MEDS ORDERED: AMIODARONE HCL 200 MG TABLET PO SCH (10:00)
[2020-02-14] MEDS ORDERED: DILTIAZEM HCL 120 MG CAP.SR.24H PO SCH (10:00)
[2020-02-14] MEDS ORDERED: ISOSORBIDE MONONITRATE 30 MG TAB.ER.24H PO SCH (10:00)
[2020-02-14] MEDS ORDERED: LEVOTHYROXINE SODIUM 0.05 MG TABLET PO SCH (10:00)
[2020-02-14 10:01] LABS: ALBUMIN 3.2 g/dL (3.5-5.0); ALKALINE PHOSPHATASE 153 U/L (38-126); ANION GAP 11 (5-19); ASPARTATE AMINO TRANSFERASE 106 U/L (14-36); BILIRUBIN,DIRECT 0.4 mg/dL (0.0-0.4); BILIRUBIN,TOTAL 0.7 mg/dL (0.2-1.3); BLOOD UREA NITROGEN 46 mg/dL (7-20); CALCIUM 9.2 mg/dL (8.4-10.2); CARBON DIOXIDE 26 mmol/L (22-30); CHLORIDE 98 mmol/L (98-107); GLUCOSE 110 mg/dL (75-110); POTASSIUM 4.2 mmol/L (3.6-5.0); TOTAL PROTEIN 6.7 g/dL (6.3-8.2)
[2020-02-14 10:15] LABS: C-REACTIVE PROTEIN 154.3 mg/L (<10.0)
--- NOTE | 2020-02-14 10:17 | PDOC PROGRESS REPORT ---
Subjective Progress Note for:: 02/14/20 Subjective:: Worsening dyspnea. Not intubated. Looks exhausted. Reason For Visit: ACUTE CONGESTIVE HEART FAILURE,ACUTE PULMONARY Physical Exam Vital Signs: Temp Pulse Resp BP Pulse Ox 97.4 F 117 H 32 H 134/86 H 92 02/14/20 08:15 02/14/20 08:15 02/14/20 08:15 02/14/20 08:15 02/14/20 08:15 Intake & Output 02/13/20 02/14/20 02/15/20 06:59 06:59 06:59 Intake Total 343 1509 Output Total 1250 Balance 343 259 Weight 62.5 kg 62.6 kg General appearance: PRESENT: mild distress, well-developed, well-nourished Head exam: PRESENT: atraumatic, normocephalic Eye exam: PRESENT: conjunctiva pink, EOMI Mouth exam: PRESENT: moist Respiratory exam: PRESENT: accessory muscle use, crackles, decreased breath sounds, prolonged expiratory phas, symmetrical, tachypnea Cardiovascular exam: PRESENT: irregular rhythm, +S1, +S2 GI/Abdominal exam: PRESENT: soft Rectal exam: PRESENT: deferred Neurological exam: PRESENT: alert, awake, oriented to person, oriented to place Psychiatric exam: PRESENT: anxious Skin exam: PRESENT: dry, intact, normal color Results Laboratory Results: 02/14/20 05:13 02/13/20 02/13/20 02/13/20 04:06 10:05 10:59 WBC RBC Hgb Hct MCV MCH MCHC RDW Plt Count Seg Neutrophils % Ferritin 89.90 C-Reactive Protein 223.6 H Urine Color YELLOW Urine Appearance CLEAR Urine pH 5.0 Ur Specific [place] 1.017 Urine Protein NEGATIVE Urine Glucose (UA) NEGATIVE Urine Ketones NEGATIVE Urine Blood NEGATIVE Urine RBC (Auto) 2 02/14/20 05:13 WBC 32.8 H* RBC 4.16 Hgb 9.5 L Hct 30.0 L MCV 72 L MCH 22.8 L MCHC 31.6 L RDW 16.1 H Plt Count 580 H Seg Neutrophils % Not Reportable Ferritin C-Reactive Protein Urine Color Urine Appearance Urine pH Ur Specific [place] Urine Protein Urine Glucose (UA) Urine Ketones Urine Blood Urine RBC (Auto) 02/12/20 02/12/20 02/12/20 16:38 16:38 21:28 Creatine Kinase CK-MB (CK-2) 3.03 Troponin I 0.087 0.088 NT-Pro-B Natriuret Pep 75196 H 02/12/20 02/13/20 02/13/20 21:44 04:06 04:06 Creatine Kinase 36 40 CK-MB (CK-2) 3.59 Troponin I 0.083 NT-Pro-B Natriuret Pep 02/13/20 02/13/20 10:59 10:59 Creatine Kinase 46 CK-MB (CK-2) 3.30 Troponin I 0.073 NT-Pro-B Natriuret Pep Impressions: Chest X-Ray 02/12/20 16:55 IMPRESSION: Patchy peripheral and basilar predominant opacities in both lungs may represent infectious/inflammatory process. Superimposed pulmonary edema not excluded. Assessment & Plan - Diagnosis (1) Shortness of breath Is this a current diagnosis for this admission?: Yes Plan: Supportive care Supplemental oxygen Clinical presentation unlikely to be due to congestive heart failure We will continue to watch volume status. (2) Atrial fibrillation Is this a current diagnosis for this admission?: Yes Plan: Discontinue sotalol Oral amiodarone may be okay to continue Continue systemic anticoagulation Oral diltiazem or intravenous diltiazem if necessary. (3) Pacemaker Is this a current diagnosis for this admission?: Yes Plan: Atrial fibrillation with demand ventricular pacing noted on telemetry. - Notes Notes: This patient is critically ill with worsening leukocytosis and increased work of breathing. COVID panel is pending Clinical presentation is not consistent with congestive heart failure. Nevertheless we will continue to watch volume status.
[2020-02-14] MEDS ORDERED: CYCLOBENZAPRINE HCL 10 MG TABLET PO PRN (10:19)
[2020-02-14] MEDS: ZINC SULFATE 220 MG CAPSULE PO SCH (10:42)
[2020-02-14] MEDS: APIXABAN 2.5 MG TABLET PO SCH (10:42)
[2020-02-14] MEDS: DONEPEZIL HCL 5 MG TABLET PO SCH (10:42)
[2020-02-14] MEDS: FUROSEMIDE INJ/PF 20 MG/2 ML SDV IV SCH (10:43)
[2020-02-14] MEDS: MORPHINE SULFATE 10 MG/ML INJ IV PRN (10:43)
[2020-02-14] MEDS: HYDROXYCHLOROQUINE SULFATE 200 MG TABLET PO SCH (10:43)
[2020-02-14] MEDS: DOCUSATE SODIUM 100 MG CAPSULE PO SCH (10:43)
[2020-02-14] MEDS ORDERED: LORAZEPAM 1 MG TABLET PO PRN (10:51)
[2020-02-14] MEDS ORDERED: CYCLOBENZAPRINE HCL 10 MG TABLET PO SCH (14:00)
--- NOTE | 2020-02-14 14:04 | PDOC PROGRESS REPORT ---
Subjective Progress Note for:: 02/14/20 Reason For Visit: ACUTE CONGESTIVE HEART FAILURE,ACUTE PULMONARY 02/14/2020 Shortness of breath, possible pneumonia, rule out COVID, hypoxia, persistent atrial fib, hypertension, hypo-magnesium, leukocytosis, thrombocytosis Physical Exam Vital Signs: Temp Pulse Resp BP Pulse Ox 97.4 F 117 H 32 H 134/86 H 92 02/14/20 08:15 02/14/20 08:15 02/14/20 08:15 02/14/20 08:15 02/14/20 08:15 Intake & Output 02/13/20 02/14/20 02/15/20 06:59 06:59 06:59 Intake Total 343 1559 252 Output Total 1250 Balance 343 309 252 Weight 62.5 kg 62.6 kg General appearance: PRESENT: mild distress Respiratory exam: PRESENT: decreased breath sounds, rhonchi Cardiovascular exam: PRESENT: RRR. ABSENT: diastolic murmur, rubs, systolic murmur Neurological exam: PRESENT: alert, awake, oriented to person, oriented to place, oriented to time, oriented to situation, CN II-XII grossly intact. ABSENT: motor sensory deficit Psychiatric exam: PRESENT: anxious Results Laboratory Results: 02/14/20 05:13 02/14/20 09:18 02/13/20 02/14/20 02/14/20 10:59 05:13 09:18 WBC 32.8 H* RBC 4.16 Hgb 9.5 L Hct 30.0 L MCV 72 L MCH 22.8 L MCHC 31.6 L RDW 16.1 H Plt Count 580 H Seg Neutrophils % Not Reportable Sodium 135.4 L Potassium 4.2 Chloride 98 Carbon Dioxide 26 Anion Gap 11 BUN 46 H Creatinine 0.85 Est GFR ( Amer) > 60 Glucose 110 Calcium 9.2 Ferritin 89.90 Total Bilirubin 0.7 AST 106 H Alkaline Phosphatase 153 H C-Reactive Protein 154.3 H Total Protein 6.7 Albumin 3.2 L 02/12/20 16:31 Throat Throat Culture - Final NORMAL ENDY 02/12/20 02/12/20 02/12/20 16:38 16:38 21:28 Creatine Kinase CK-MB (CK-2) 3.03 Troponin I 0.087 0.088 NT-Pro-B Natriuret Pep 84558 H 0402/13/20 02/13/20 21:44 04:06 04:06 Creatine Kinase 36 40 CK-MB (CK-2) 3.59 Troponin I 0.083 NT-Pro-B Natriuret Pep 02/13/20 02/13/20 02/14/20 10:59 10:59 09:18 Creatine Kinase 46 CK-MB (CK-2) 3.30 Troponin I 0.073 NT-Pro-B Natriuret Pep 7190 H Impressions: Chest X-Ray 02/12/20 16:55 IMPRESSION: Patchy peripheral and basilar predominant opacities in both lungs may represent infectious/inflammatory process. Superimposed pulmonary edema not excluded. Assessment and Plan - Diagnosis (1) Acute respiratory failure with hypoxia Is this a current diagnosis for this admission?: Yes (2) Atrial fibrillation Is this a current diagnosis for this admission?: Yes (3) Elevated lactic acid level Is this a current diagnosis for this admission?: Yes (4) Hypertension Qualifiers: Hypertension type: essential hypertension Qualified Code(s): I10 - Essential (primary) hypertension Is this a current diagnosis for this admission?: Yes (5) Hypomagnesemia Is this a current diagnosis for this admission?: Yes (6) Leukocytosis Qualifiers: Leukocytosis type: unspecified Qualified Code(s): D72.829 - Elevated white blood cell count, unspecified Is this a current diagnosis for this admission?: Yes (7) Pacemaker Is this a current diagnosis for this admission?: Yes (8) Shortness of breath Is this a current diagnosis for this admission?: Yes (9) Suspected 2019-nCoV infection Is this a current diagnosis for this admission?: Yes (10) Thrombocytosis Is this a current diagnosis for this admission?: Yes - Plan Summary Summary: Patient is admitted to telemetry on the medical floor where she will receive routine supportive and symptomatic cares. She will receive IV meropenem initially until blood and urine culture results are known. She will receive supportive supplemental oxygen and additional airway support utilizing non invasive airway pressure devices such as BiPAP or CPAP, in order to maintain an adequate oxygen saturation level. She will receive morphine sulfate 2 mg IV every hour as needed for severe dyspnea due to pulmonary edema. An echocardiogram will be performed and a cardiology consultation with Dr. Gallegos will be obtained. Intravenous magnesium replacement was initiated in the ER. Patient's fluid electrolyte balance will be monitored closely with metabolic profiles as required. CBCs and magnesium levels will also be obtained as needed. Arterial and/or venous blood gases will be obtained as required. Patient will receive additional doses of IV Lasix after her initial dose administered in the ER. Patient's INR will be followed closely. She will be treated with a heart healthy diet. 02/14/2020 Patient remains afebrile, and in fact she has not had a fever since she presented. Patient remains tachycardic at 117 Respiration rates are in the mid to high 20s, been as high as 32 earlier this morning Saturations are in the low 90s Patient is on high flow nonrebreather's Blood cell count is going up on admission was 20,002 days ago and today is 32,000 INR was elevated on admission 2.41 today it is 1.78. Patient remains on Eliquis, was taking this prior to admission Liver functions have improved BNP is also better CRP has come down to 154, from 223 on admission COVID is still pending Patient's original admission chest x-ray 2 days ago shows fluffy bilateral infiltrates right worse than left Patient currently on meropenem and Zithromax as well as zinc and Plaquenil This appears to be an infectious process. We will continue medications as currently on. Patient tells me she is complaining of back pain and has had 8 back surgeries in the past. We will resume her Flexeril Add Ativan for her anxiety from shortness of breath Patient needs repeat chest x-ray and/or CT scan of the chest - Time Time Spent with patient: 35 or more minutes
--- NOTE | 2020-02-14 18:15 | Death Summary ---
Summary Date : 02/14/20 Time of :: 16:45 Autopsy: No Resuscitation Status: Do Not Resuscitate Primary Care Provider: ozzie jones Consulting Provider: rob wayne MD - Final Diagnosis (1) Acute respiratory failure with hypoxia Is this a current diagnosis for this admission?: Yes (2) Atrial fibrillation Is this a current diagnosis for this admission?: Yes (3) Elevated lactic acid level Is this a current diagnosis for this admission?: Yes (4) Hypertension Is this a current diagnosis for this admission?: Yes (5) Hypomagnesemia Is this a current diagnosis for this admission?: Yes (6) Leukocytosis Is this a current diagnosis for this admission?: Yes (7) Pacemaker Is this a current diagnosis for this admission?: Yes (8) Shortness of breath Is this a current diagnosis for this admission?: Yes (9) Suspected 2019-nCoV infection Is this a current diagnosis for this admission?: Yes (10) Thrombocytosis Is this a current diagnosis for this admission?: Yes (11) Viral pneumonitis Is this a current diagnosis for this admission?: Yes Hospital Course:: Patient was admitted to the hospital on 02/12/2020 with shortness of breath.. To the history this is been going on for 3 weeks now.. Patient has had a nonproductive cough as well as generalized weakness fatigue and malaise. Patient has been in the urgent care x2 in the last 3 weeks and was treated with a 10-day course of Rocephin as well as doxycycline with no improvement In the emergency room she was found to have a elevated lactic acid at 3.3 and a BNP greater than 10,000, white count of 20,000 and a magnesium of 1.3. Patient has been tested for COVID-19 however results are pending She was admitted with supportive care as well as initially IV meropenem airway support devices such as BiPAP and CPAP, cardiology consult, IV Lasix. Patient was seen by mortgage loan originator on the following day and was diagnosed with shortness of breath atrial fib with rate controlled and a pacemaker.. That same day the patient was seen by the hospitalist who diagnosed viral pneumonitis, suspected COVID-19, acute respiratory failure with hypoxia, acute pulmonary edema with congestive heart failure, longstanding persistent atrial fib, elevated lactic acid, hypertension, hypo-magnesium, cytosis, and thrombocytosis. Patient was admitted her white count was elevated 20,100 the next day it went up to 20,800 and then today it went up to 32,800. Weight lids were high at 555,000 and went up to 580,000. Patient's INR was elevated on admission 2.41 today it went back down to 1.78. D-dimer was also elevated at 3.15. Patient was on Eliquis when she presented to the ER. Chemistry panel on admission BNP was 10,700 today it was down to 7190. Chem-7 was basically normal lactic acid has gone down to 1.3 C-reactive protein on admission was elevated to 3 today it was down to 154. Troponin on admission was elevated at 0.073 CK-MB index was normal at 3.30. T his was felt to be elevated due to her pulmonary status Flu swab on admission was negative rapid strep was negative COVID-19 is pending Culture showed no growth in 48 hours and throat culture showed normal niki X-ray on admission showed patchy peripheral and basilar predominant opacities in both lungs which may represent infectious or inflammatory process. Also superimposed pulmonary edema not excluded. At the time of pertinent medications today included nitroglycerin ointment, meropenem IV, Zithromax IV Protonix p.o, Eliquis 2.5 twice daily Lasix 20 mg IV every 12 hours., Plaquenil 200 mg twice daily, Cardizem CD 240 daily, amiodarone 200 mg daily Imdur 30 mg daily Morning on rounds I spoke to the patient we talked about her back pain she told me she had had 8 previous back operations and would like to have her Flexeril which she took 3 times a day I agreed that that was important also she seemed anxious and told her I would order some Ativan to use as needed for anxiety. Also in reviewing her chart was concerned about her d-dimer however she was on Eliquis prior to coming to the ER and had been on Eliquis since in the hospital. Was considering repeating her chest x-ray later today either portable or possibly even a CT angiogram but I was waiting for the COVID-19 results to return. Nurse to call me today around 1615 that the patient was becoming unresponsive and was not arousing to painful stimuli. To the room and found the patient to be unresponsive with agonal breathing. Patient was a DNR and blood pressure and vital signs were taken blood pressure was approximately 80/40 and then 5 minutes later 50/0. Pulse was thready.. It was obvious that patient was succumbing to her illness. Called patient's daughter why was still in the room and she spoke to her mother by phone, the mother was unresponsive. Shortly thereafter at 1644 the patient . In the interim we called infectious disease who called [facility] if we can get a verbal report of her COVID 19. Informed us that would be ready tomorrow morning. Told the patient's daughter, Eliz, call her in the morning with the test results. IExpressed my condolences to the family. I Also spoke to Dr. Wayne the consulting mortgage loan originator and informed him of the patient's
[2020-02-14 18:21] VITALS: BP 51/29
--- NOTE | 2020-02-15 14:04 | Progress Note ---
Provider Note Provider Note: 02/15/2020 Call patient's daughter yesterday and twice today, Eliz, discussed the passing of her mother. Today I told her that the COVID 19 test was negative. She expressed her gratitude for my phone calls yesterday and today. Told her that we even were treating her as if she had COVID-19.
== END 2020-02-14 16:44 | disposition expired | DRG 189 ==
LOC: ER 16:27 → EH 20:22 → 5 23:30
PROVIDERS: ADMIT Emergency Medicine; ATTEND Physician Assistant
DX: J96.01 Acute respiratory failure with hypoxia (principal); J12.9 Viral pneumonia, unspecified; J81.1 Chronic pulmonary edema; I48.11 Longstanding persistent atrial fibrillation; I11.0 Hypertensive heart disease with heart failure; I50.9 Heart failure, unspecified; J44.9 Chronic obstructive pulmonary disease, unspecified; Z66 Do not resuscitate; R74.0 Nonspecific elevation of levels of transaminase and lactic acid dehydrogenase [LDH]; E83.42 Hypomagnesemia; D72.829 Elevated white blood cell count, unspecified; Z95.0 Presence of cardiac pacemaker; D47.3 Essential (hemorrhagic) thrombocythemia; Z96.659 Presence of unspecified artificial knee joint; Z03.818 Encounter for observation for suspected exposure to other biological agents ruled out; Z87.891 Personal history of nicotine dependence; Z82.49 Family history of ischemic heart disease and other diseases of the circulatory system
CPT/HCPCS: 36415; 71045; 80048; 80053; 81001; 82550; 82553; 82728; 83605; 83735; 83880; 84443; 84481; 84484; 85025; 85379; 85610; 85730; 86140; 87040; 87070; 87635; 87804; 87880; 93005; 93010; 99285; J0456; J1940; J2185; J2270; J3411; J3475; J3490; J7050; J7060